=== PATIENT | male | born 1955 | race Caucasian/White ===

== ENCOUNTER 2019-05-29 11:53 | Day surgery (SDC) | payer MEDICARE ==
[~2019-05-29] VITALS: Ht 172.7 cm; Wt 84.5 kg
[~2019-05-29 11:53] MED LIST: AZIT250 PO; NAPR500 PO; SILD25T PO; TUMS500 MG PO
--- NOTE | 2019-05-29 14:39 | NUR ---
05/29/19 1436 Shahrzad Mitchell LATE ENTRY---PROCEDURE STOPPED 1353 AND SCOPE CHANGED RESTART AT 1358
== END 2019-05-29 14:35 | disposition home or self-care (01) ==
LOC: ORSCSDS 11:53
PROVIDERS: Surgery
PROC: 0DBP8ZX Excision of Rectum, Via Natural or Artificial Opening Endoscopic, Diagnostic (ICD-10-PCS; principal; 2019-05-29 14:45)
PROC: 0DBN8ZX Excision of Sigmoid Colon, Via Natural or Artificial Opening Endoscopic, Diagnostic (ICD-10-PCS; principal; 2019-05-29 14:45)
PROC: 0DBM8ZX Excision of Descending Colon, Via Natural or Artificial Opening Endoscopic, Diagnostic (ICD-10-PCS; principal; 2019-05-29 14:45)
PROC: 0DBL8ZX Excision of Transverse Colon, Via Natural or Artificial Opening Endoscopic, Diagnostic (ICD-10-PCS; principal; 2019-05-29 14:45)
DX: Z12.11 Encounter for screening for malignant neoplasm of colon (principal); D12.3 Benign neoplasm of transverse colon; K63.5 Polyp of colon; K62.1 Rectal polyp; B19.20 Unspecified viral hepatitis C without hepatic coma; J45.909 Unspecified asthma, uncomplicated; Z87.891 Personal history of nicotine dependence
CPT/HCPCS: 88305; J2704; J7120

== ENCOUNTER 2024-03-25 17:35 | Inpatient (IN) | payer MEDICARE ==
[~2024-03-25] VITALS: Ht 172.7 cm; Wt 84.2 kg
[2024-03-25] VITALS (18 sets, daily range): BP systolic 94–217; BP diastolic 66–134
[2024-03-25] MEDS ORDERED: NS 2,000 ML IV ONE (17:41)
[2024-03-25] MEDS ORDERED: Heparin Sodium 1000 Units/ML 10ML MDV ONE (17:41)
[2024-03-25] MEDS ORDERED: NS 250 ML IV ONE (17:41)
[2024-03-25] MEDS ORDERED: Nitroglycerin 2 MG/20 ML BTL ONE (17:41)
[2024-03-25] MEDS ORDERED: Verapamil HCL 2.5 MG/ML 2ML Injection ONE (17:41)
[2024-03-25] MEDS ORDERED: OMEP20ER PO (17:56)
[2024-03-25] MEDS ORDERED: Midazolam HCl 1MG / ML 2ML Vial ONE ×2 (18:10→18:35)
[2024-03-25] MEDS ORDERED: FentaNYL Citrate 50 MCG/ML 2 ML Injection ONE (18:10)
[2024-03-25] MEDS ORDERED: Phenylephrine HCl 100 MCG/ML-NS 10MLSYR (1MG/10ML) ONE (18:13)
[2024-03-25] MEDS ORDERED: Atropine Sulfate 0.1 MG/ML 10ML SYR ONE (18:13)
[2024-03-25] MEDS ORDERED: Heparin Sodium 5000 Units/ML 1ML MDV IV ONE (18:25)
[2024-03-25] MEDS ORDERED: Tirofiban HCL M-Hyd/NS 250 ML IV ONE (18:30)
[2024-03-25] MEDS ORDERED: Ticagrelor 90 MG TABLET PO ONE ×2 (18:30→18:47)
[2024-03-25] MEDS ORDERED: Tirofiban HCL Monohydrate 3.75 MG/15 ML Vial ONE (18:30)
[2024-03-25 18:32] LABS: BASOPHILS ABSOLUTE AUTO 0.06 K/mm3 (0.00-0.23); BASOPHILS PERCENT AUTO 0 % (0-2); EOSINOPHILS ABSOLUTE AUTO 0.17 K/mm3 (0.00-0.68); EOSINOPHILS PERCENT AUTO 1 % (0-6); Hematocrit 45.6 % (37.0-53.0); Hemoglobin 15.9 g/dL (13.5-17.5); IMMATURE GRAN ABSOLUTE AUTO 0.07 K/mm3 (0.00-0.10); IMMATURE GRAN PERCENT AUTO 0 % (0-1); LYMPHOCYTES ABSOLUTE AUTO 1.77 K/mm3 (0.84-5.20); LYMPHOCYTES PERCENT AUTO 11 % (21-46); MONOCYTES ABSOLUTE AUTO 1.58 K/mm3 (0.16-1.47); MONOCYTES PERCENT AUTO 9 % (4-13); Mean Corpuscular HGB 30.8 pg (26.0-34.0); Mean Corpuscular HGB Conc 34.9 g/dL (31.5-36.5); Mean Corpuscular Volume 88 fL (80-100); Mean Platelet Volume 9.5 fL (9.1-12.4); NEUTROPHILS ABSOLUTE AUTO 13.24 K/mm3 (1.96-9.15); NEUTROPHILS PERCENT AUTO 78 % (41-73); Platelet Count 267 K/mm3 (150-400); RDW Coefficient Variation 12.4 % (11.7-14.2); RDW Standard Deviation 40.3 fL (35.1-46.3); Red Blood Cell Count 5.17 M/mm3 (4.30-5.90); White Blood Cell Count 16.89 K/mm3 (4.00-11.30)
[2024-03-25 18:40] LABS: Albumin, Blood 3.8 g/dL (3.4-5.0); Albumin/Globulin Ratio 1.1 (0.8-1.8); Bilirubin, Total 0.5 mg/dL (0.1-1.0); Bun/Creatinine Ratio 16.3 (12.0-20.0); Creatinine, Blood 0.92 mg/dL (0.60-1.20); Globulin, Blood 3.4 g/dL (2.2-4.0); Potassium, Blood 3.7 mmol/L (3.5-5.5); Total Protein, Blood 7.2 g/dL (6.4-8.2)
[2024-03-25 18:42] LABS: Prothrombin Time Results 10.7 Sec (9.7-11.5)
[2024-03-25] MEDS ORDERED: Heparin Sodium,Porcine 5,000 UNIT/0.5 ML SDV SC ONE (18:47)
[2024-03-25] MEDS ORDERED: TIROFIBAN IV SCH (20:10)
[2024-03-25] MEDS ORDERED: SODIUM CHLORIDE IV SCH (20:10)
[2024-03-25] MEDS ORDERED: [UNRECOGNIZED DRUG - OTHER] IV SCH (20:10)
[2024-03-25] MEDS ORDERED: Labetalol HCL 5 MG/ML 4ML Injection (Single Dose) IV PRN (20:10)
[2024-03-25] MEDS ORDERED: Morphine Sulfate 4 MG/1 ML Injection IV PRN (20:15)
[2024-03-25] MEDS ORDERED: Ondansetron HCl 2 MG / ML 2ML Vial IV PRN (20:15)
[2024-03-25] MEDS ORDERED: Acetaminophen 325 MG TABLET PO PRN (20:25)
[2024-03-25] MEDS ORDERED: Metoprolol Tartrate 25 MG Tab PO SCH (21:00)
[2024-03-25] MEDS ORDERED: Nitroglycerin/D5W 250 ML IV SCH (21:40)
[2024-03-26] VITALS (57 sets, daily range): BP systolic 119–180; BP diastolic 83–129
[2024-03-26 03:37] LABS: Hemoglobin 14.8 g/dL (13.5-17.5); Mean Corpuscular HGB Conc 35.2 g/dL (31.5-36.5); Mean Corpuscular Volume 88 fL (80-100); Mean Platelet Volume 9.1 fL (9.1-12.4); Platelet Count 237 K/mm3 (150-400); RDW Coefficient Variation 12.7 % (11.7-14.2); RDW Standard Deviation 41.2 fL (35.1-46.3); Red Blood Cell Count 4.77 M/mm3 (4.30-5.90); White Blood Cell Count 14.77 K/mm3 (4.00-11.30)
[2024-03-26 03:59] LABS: Bun/Creatinine Ratio 13.9 (12.0-20.0); Calcium, Blood 8.9 mg/dL (8.5-10.1); Creatinine, Blood 0.79 mg/dL (0.60-1.20); Potassium, Blood 4.2 mmol/L (3.5-5.5)
[2024-03-26] MEDS ORDERED: Omeprazole 20 MG CapCR PO SCH (06:00)
--- NOTE | 2024-03-26 06:26 | NUR ---
SHIFT SUMMARY: PT arrived today from the laboratory machinist after having a stent placed. Pt complaint of chest pain. Pain was difficult to control with medication, pt refused morphine after initial dose. Pt been in a sinus rhythm in the 80s-90s with PVCs. Pt has been hypertensive, titrating nitro gtt for systolic 130-140. He is on room air without difficulty breathing or shortness of breath. His lungs are clear. TR band was removed during shift, insertion site is soft w/o hematoma. 12 lead ECG performed when patient returned from the laboratory machinist. Antonio reviewed and spoke with the patient. Pts kids have visited. He is anxious for discharge.
[2024-03-26] MEDS ORDERED: Aspirin 81 MG Chew PO SCH (07:00)
[2024-03-26] MEDS ORDERED: Ticagrelor 90 MG TABLET PO SCH ×3 (07:00→09:00)
--- NOTE | 2024-03-26 07:15 | NUR ---
ASSUMED CARE OF PATIENT PT IS AWAKE ALERT ORIENTED X 4. MAEW. PT HAS NITRO GTT GOING AT 25MCG/ PT HAS IV TO LEFT AC FLUSH EASILY AND BLOOD BACK HOWEVER 20G TO LEFT WRIST DOES NOT FLUSH AND WILL BE DC'D. PT ABLE TO VOID WITH URINAL PT CHEST PAIN 1-2 TO CHEST ACHE MOSTLY. PT TO HAVE ECHO DONE TODAY GOAL IS TO GET SBP LESS THAN 140.
[2024-03-26] MEDS ORDERED: Enoxaparin 40 MG/0.4 ML SYR SC SCH (09:00)
[2024-03-26] MEDS ORDERED: Atorvastatin 40 MG Tab PO SCH (09:00)
--- NOTE | 2024-03-26 11:39 | NUR ---
update Patient stated to this RN that he does smoke marijuana every eveing for aide to sleep.
[2024-03-26] MEDS ORDERED: Sacubitril/Valsartan 24 MG-26 MG Tab PO SCH (13:50)
[2024-03-26] MEDS ORDERED: Carvedilol 3.125 MG Tab PO SCH (13:50)
--- NOTE | 2024-03-26 14:40 | NUR ---
UPDATE PT SEEN BY DR CASTANEDA. PT AGREED TO STAY ANOTHER NIGHT. MEDICATIONS STARTED PO FOR BP CONTROL. PT TOLERATING MEDS OK. A LITTLE NAUSEA'S. ZOFRAN GIVEN. PT VOIDING WELL IN URINAL. EKG DONE. NITRO GTT TURNED OFF.
[2024-03-26] MEDS ORDERED: Carvedilol 6.25 MG Tab PO SCH ×2 (17:00)
--- NOTE | 2024-03-26 17:48 | NUR ---
END OF SHIFT NOTE. PT HAS BEEN CHANGED TO PCU STATUS AND WILL BE MOVING TO PCU 16. PT HAS BEEN OUT OF BED ONCE TODAY TO TOILET AND TO BATH HIMSELF. HE IS NOT COMPLAINING OF ANY PAIN SINCE THE NITRO GTT HAS BEEN TURNED OFF. HIS BP HAS BEEN 130 TO 140 SYSTOLIC OVER 90'S. HE IS ON ROOM AIR AND LUNGS ARE CLEAR. HE HAS ONE PERIPHERAL IV TO LEFT AC FLUSHED AND SALINE LOCKED. HE IS VOIDING WELL WITH THE URINAL AND EATTING FOOD EASILY TOO. HE HAS ONLY BEEN COMPLAINING OF NAUSEA ONCE TODAY. NO ACUTE CHANGES AT THIS TIME. LOTS OF EDUCATION WAS GIVEN ABOUT HIS NEW MEDICATIONS HE IS NOW TAKING D/T HIS HYPERTENSION AND STENT.
--- NOTE | 2024-03-26 18:30 | NUR ---
PT ARRIVED ON UNIT BY WALKING OVER FROM ICU. DAUGHTER AND SON AT BEDSIDE. VITAL SIGNS TAKEN AND STABLE. DENIED CHEST PAIN/PRESSURE OR SOB. DENIED FEELING NAUSEOUS BUT ASKED FOR A VOMIT BAG JUST IN CASE. ON TELE SHOWING SINUS IN 80'S. 02 SATURAITON >92% ON ROOM AIR. PER REPORT PATIENT NEEDS LOTS OF EDUCATION REGARDING TAKING MEDICATION HE WOULD PREFER NOT TO PUT ANYHING FOREIGN INTO HIS BODY. THE PLAN IS TO DISCHARGE TOMORROW . WILL REPORT TO ONCOMING TRAILER PARK MANAGER RN.
[2024-03-27 01:02] VITALS: BP 119/87
[2024-03-27 04:16] VITALS: BP 115/85
[2024-03-27 04:54] LABS: BASOPHILS ABSOLUTE AUTO 0.07 K/mm3 (0.00-0.23); BASOPHILS PERCENT AUTO 1 % (0-2); EOSINOPHILS ABSOLUTE AUTO 0.24 K/mm3 (0.00-0.68); EOSINOPHILS PERCENT AUTO 2 % (0-6); Hematocrit 43.9 % (37.0-53.0); Hemoglobin 15.2 g/dL (13.5-17.5); IMMATURE GRAN ABSOLUTE AUTO 0.07 K/mm3 (0.00-0.10); IMMATURE GRAN PERCENT AUTO 1 % (0-1); LYMPHOCYTES ABSOLUTE AUTO 1.97 K/mm3 (0.84-5.20); LYMPHOCYTES PERCENT AUTO 14 % (21-46); MONOCYTES ABSOLUTE AUTO 1.92 K/mm3 (0.16-1.47); MONOCYTES PERCENT AUTO 13 % (4-13); Mean Corpuscular HGB 31.2 pg (26.0-34.0); Mean Corpuscular HGB Conc 34.6 g/dL (31.5-36.5); Mean Corpuscular Volume 90 fL (80-100); Mean Platelet Volume 9.6 fL (9.1-12.4); NEUTROPHILS ABSOLUTE AUTO 10.02 K/mm3 (1.96-9.15); NEUTROPHILS PERCENT AUTO 70 % (41-73); Platelet Count 224 K/mm3 (150-400); RDW Coefficient Variation 12.8 % (11.7-14.2); RDW Standard Deviation 42.3 fL (35.1-46.3); Red Blood Cell Count 4.87 M/mm3 (4.30-5.90); White Blood Cell Count 14.29 K/mm3 (4.00-11.30)
[2024-03-27 05:20] LABS: Albumin, Blood 3.2 g/dL (3.4-5.0); Albumin/Globulin Ratio 0.9 (0.8-1.8); Bun/Creatinine Ratio 15.8 (12.0-20.0); Calcium, Blood 8.6 mg/dL (8.5-10.1); Creatinine, Blood 0.82 mg/dL (0.60-1.20); Globulin, Blood 3.5 g/dL (2.2-4.0); Magnesium, Blood 1.9 mg/dL (1.6-2.4); Potassium, Blood 4.2 mmol/L (3.5-5.5); Total Protein, Blood 6.7 g/dL (6.4-8.2)
--- NOTE | 2024-03-27 05:58 | NUR ---
SHIFT SUMMARY NO ACUTE CHANGES DURING SHIFT. PT RESTED QUIETLY WHEN UNDISTURBED. DENIES C/O CHEST PAIN OR OTHER DISCOMFORT. C/O MILD SOB R/T "ASTHMA" BUT DENIED NEED FOR TREATMENT. REPOSITIONS SELF IN BED. VS WNL. RA SATS WNL. AFEBRILE. VOIDING WITHOUT DIFFICULTY. LEFT RADIAL SITE CLEAR WITH DRSG C/D/I. PT IS ANXIOUS TO GO HOME TODAY.
[2024-03-27 08:41] VITALS: BP 141/116
[2024-03-27] MEDS ORDERED: Empagliflozin 10 MG TAB PO SCH (09:00)
[2024-03-27] MEDS ORDERED: Losartan Potassium 25 MG Tab PO SCH (09:00)
[2024-03-27] MEDS ORDERED: Carvedilol 3.125 MG Tab PO ONE (09:10)
[2024-03-27] MEDS ORDERED: Spironolactone 12.5 MG TAB PO SCH (09:10)
[2024-03-27] MEDS ORDERED: CARV6.25 PO (11:21)
[2024-03-27] MEDS ORDERED: JARDIANCE10 MG PO (11:22)
[2024-03-27] MEDS ORDERED: ENTRESTO 24 MG1 EACH PO (11:23)
[2024-03-27] MEDS ORDERED: SPIR25 PO (11:24)
[2024-03-27] MEDS ORDERED: TICA90TA PO (11:25)
--- NOTE | 2024-03-27 12:24 | NUR ---
DISCHARGE SUMMARY PT IS A&OX4. ON ROOM AIR SATS IN THE 90'S, LUNG SOUNDS CLEAR. HR IN THE 90-100'S, SR ON THE MONITOR. DENIES CP/SOB. TOLERATING PO INTAKE. INDEPENDENT IN THE ROOM. IV REMOVED W/O COMPLAINT. PT WAS ESCORTED OUT ON FOOT BY RN WITH ALL BELONGINGS. MEDICATIONS SENT TO PTS PHARMACY OF CHOICE, DISCHARGE PACKET DISCUSSED AND QUESTIONS ADDRESSED.
[2024-03-27] MEDS ORDERED: Carvedilol 6.25 MG Tab PO SCH (21:00)
== END 2024-03-27 12:30 | disposition home or self-care (01) | DRG 322 ==
LOC: ER 17:35 → ICUE 18:10 → PCU 03-26 18:18
PROVIDERS: Nurse Practitioner Acute Care; Student in an Organized Health Care Education/Training Program; ADMIT Student in an Organized Health Care Education/Training Program
PROC: 027034Z Dilation of Coronary Artery, One Artery with Drug-eluting Intraluminal Device, Percutaneous Approach (ICD-10-PCS; principal; 2024-03-25)
PROC: 02C03ZZ Extirpation of Matter from Coronary Artery, One Artery, Percutaneous Approach (ICD-10-PCS; 2024-03-25)
PROC: B241ZZ3 Ultrasonography of Multiple Coronary Arteries, Intravascular (ICD-10-PCS; 2024-03-25)
PROC: B2111ZZ Fluoroscopy of Multiple Coronary Arteries using Low Osmolar Contrast (ICD-10-PCS; 2024-03-25)
PROC: 4A023N7 Measurement of Cardiac Sampling and Pressure, Left Heart, Percutaneous Approach (ICD-10-PCS; 2024-03-25)
DX: I21.09 ST elevation (STEMI) myocardial infarction involving other coronary artery of anterior wall (principal); I50.22 Chronic systolic (congestive) heart failure; E78.5 Hyperlipidemia, unspecified; K21.9 Gastro-esophageal reflux disease without esophagitis; I11.0 Hypertensive heart disease with heart failure; I25.5 Ischemic cardiomyopathy; Z98.52 Vasectomy status; Z90.49 Acquired absence of other specified parts of digestive tract; Z98.890 Other specified postprocedural states; Z79.899 Other long term (current) drug therapy; Z87.891 Personal history of nicotine dependence
CPT/HCPCS: 36415; 71045; 76937; 80048; 80053; 83036; 83735; 84484; 85025; 85027; 85347; 85610; 85730; 92973; 92978; 93005; 93010; 93458; 99152; 99153; 99285-25; A9270; C1725; C1753; C1769; C1874; C1887; C1894; C8929; C9606; J0461; J1644; J1650; J2250; J2270; J2371; J2405; J3010; J3246; J7030; J7050; Q9957; Q9967

== ENCOUNTER 2024-06-03 12:10 | Emergency (ER) | payer MEDICARE ==
[~2024-06-03] VITALS: Ht 172.7 cm; Wt 81.7 kg
[~2024-06-03 12:10] MED LIST changes: +CARV6.25 PO; +ENTRESTO 24 MG1 EACH PO; +JARDIANCE10 MG PO; +OMEP20ER PO; +SPIR25 PO; +TICA90TA PO
[2024-06-03] MEDS ORDERED: Ipratropium/Albuterol SulF 2.5-0.5MG/3 ML Amp INH PRN (12:40)
[2024-06-03 12:48] LABS: BASOPHILS ABSOLUTE AUTO 0.03 K/mm3 (0.00-0.23); BASOPHILS PERCENT AUTO 0 % (0-2); EOSINOPHILS ABSOLUTE AUTO 0.03 K/mm3 (0.00-0.68); EOSINOPHILS PERCENT AUTO 0 % (0-6); Hematocrit 43.6 % (37.0-53.0); Hemoglobin 15.5 g/dL (13.5-17.5); IMMATURE GRAN ABSOLUTE AUTO 0.08 K/mm3 (0.00-0.10); IMMATURE GRAN PERCENT AUTO 1 % (0-1); LYMPHOCYTES ABSOLUTE AUTO 1.72 K/mm3 (0.84-5.20); LYMPHOCYTES PERCENT AUTO 13 % (21-46); MONOCYTES ABSOLUTE AUTO 1.01 K/mm3 (0.16-1.47); MONOCYTES PERCENT AUTO 8 % (4-13); Mean Corpuscular HGB 31.3 pg (26.0-34.0); Mean Corpuscular HGB Conc 35.6 g/dL (31.5-36.5); Mean Corpuscular Volume 88 fL (80-100); Mean Platelet Volume 9.5 fL (9.1-12.4); NEUTROPHILS ABSOLUTE AUTO 10.43 K/mm3 (1.96-9.15); NEUTROPHILS PERCENT AUTO 79 % (41-73); Platelet Count 266 K/mm3 (150-400); RDW Coefficient Variation 13.6 % (11.7-14.2); RDW Standard Deviation 43.6 fL (35.1-46.3); Red Blood Cell Count 4.95 M/mm3 (4.30-5.90)
[2024-06-03] MEDS ORDERED: Albuterol 2.5 MG/3 ML VIAL INH SCH (13:05)
[2024-06-03 13:35] LABS: Albumin, Blood 3.9 g/dL (3.4-5.0); Albumin/Globulin Ratio 1.1 (0.8-1.8); Bilirubin, Total 0.6 mg/dL (0.1-1.0); Bun/Creatinine Ratio 23.2 (12.0-20.0); Calcium, Blood 9.4 mg/dL (8.5-10.1); Creatinine, Blood 0.91 mg/dL (0.60-1.20); Globulin, Blood 3.4 g/dL (2.2-4.0); Potassium, Blood 4.5 mmol/L (3.5-5.5); Total Protein, Blood 7.3 g/dL (6.4-8.2)
[2024-06-03] MEDS ORDERED: Dexamethasone Sod Phos 10 MG/ML 1ML VIAL IV ONE (14:50)
[2024-06-03] MEDS ORDERED: METPRE4DP PO (17:19)
[2024-06-03 17:28] VITALS: BP 156/95
== END 2024-06-03 17:28 | disposition home or self-care (01) ==
LOC: ER 12:10
PROVIDERS: Physician Assistant
DX: R06.02 Shortness of breath (principal); R07.9 Chest pain, unspecified; R06.2 Wheezing; J45.909 Unspecified asthma, uncomplicated; I25.2 Old myocardial infarction; I10 Essential (primary) hypertension; Z79.84 Long term (current) use of oral hypoglycemic drugs; Z79.899 Other long term (current) drug therapy; Z87.891 Personal history of nicotine dependence
CPT/HCPCS: 71046; 80053; 84484; 85025; 93005; 93010; 94640; 94644; 94664; 96374; 99285-25; J1100